=== PATIENT | male | born 2000 | race African-American/Black ===

== ENCOUNTER 2023-03-06 16:16 | Emergency (ER) | payer SELFPAY ==
[~2023-03-06] VITALS: Ht 175.3 cm; Wt 75.0 kg
[2023-03-06 16:21] VITALS: O2SAT 98
[2023-03-06] MEDS ORDERED: METH-653 MT (17:44)
[2023-03-06] MEDS ORDERED: ACETAMINOPHEN 325MG TABLET PO ONE (18:00)
[2023-03-06 18:35] VITALS: BP 110/56; PULSE 61; RESP 17; TEMP 98.2
== END 2023-03-06 18:44 | disposition home or self-care (01) ==
LOC: ER 16:16
DX: S09.90XA Unspecified injury of head, initial encounter (principal); M54.2 Cervicalgia; M54.9 Dorsalgia, unspecified; M25.572 Pain in left ankle and joints of left foot; M79.641 Pain in right hand; V98.8XXA Other specified transport accidents, initial encounter; Y93.89 Activity, other specified; Y92.89 Other specified places as the place of occurrence of the external cause; Y99.8 Other external cause status
CPT/HCPCS: 29125; 73130; 73610; 99284